=== PATIENT | female | born 1960 | race Caucasian/White ===

== ENCOUNTER 2017-07-09 12:44 | Observation (INO) | payer OTHER ==
[2017-07-09] MEDS ORDERED: Aspirin Low Dose CHEW TAB* 81 MG PO ONE (13:20)
[2017-07-09 13:53] LABS: Hematocrit 37 % (35-47); Hemoglobin 12.7 g/dl (12.0-16.0); Mean Corpuscular HGB Conc 34 g/dl (31-36); Mean Corpuscular Hemoglobin 29 pg (27-31); Mean Corpuscular Volume 84 fL (80-97); Mean Platelet Volume 8 um3 (7.4-10.4); Red Blood Count 4.39 10^6/ul (4.0-5.4); Red Cell Distribution Width 14 % (10.5-15); White Blood Count 5.9 10^3/ul (3.5-10.8)
--- NOTE | 2017-07-09 14:06 | RAD ---
INDICATION: Chest pain, LEFT midline for 4 weeks worsening today. COMPARISON: May 15, 2014 TECHNIQUE: Dual energy PA and routine lateral views of the chest were obtained. REPORT: No focal pulmonary lesion, compelling alveolar consolidation, pleural effusion, pneumothorax. The heart, pulmonary vasculature, and mediastinal contours are unremarkable. Unremarkable soft tissue contours and osseous structures for age. IMPRESSION: No evidence for acute intrathoracic disease.
[2017-07-09 14:26] LABS: Albumin 4.2 g/dL (3.2-5.2); Calcium 9.3 mg/dL (8.6-10.3); EGFR African American 95.8 (>60); EGFR Non-African American 74.5 (>60); Globulin 2.6 g/dL (2-4); Magnesium 2.1 mg/dL (1.9-2.7); Potassium 4.2 mmol/L (3.5-5.0); Total Bilirubin 0.3 mg/dL (0.2-1.0); Total Protein 6.8 g/dL (6.4-8.9)
--- NOTE | 2017-07-09 14:49 | ED ---
Shantell Appiah Alfonso, scribed for Nitin Higginbotham MD on 07/09/17 at 1342 . HPI Chest Pain - HPI Summary HPI Summary: This patient is a 56 year old F presenting to [facility] accompanied by a female with a chief complaint of CP since 4 weeks ago and worse since 0700 today. The CP lasted 4 hours and is now mostly resolved. The CC is described as discomfort , tightness, and heaviness. The patient rates the pain 3/10 in severity. Symptoms aggravated by nothing. Symptoms alleviated by nothing. Patient reports palpitations, heart burn, SOB (resolved), and dizziness. Patient denies diaphoresis, nausea, abdominal pain, and calf pain. She takes ASA 81 mg daily. FHx of CAD and HTN. PMHx includes CAD, DC, and HTN. - History of Current Complaint Chief Complaint: EDChestPainROMI Time Seen by Provider: 07/09/17 13:19 Hx Obtained From: Patient Onset/Duration: Started Weeks Ago - 4, Resolved, Worse Since - 0700 today lasting 4 hours Timing: Intermittent Initial Severity: Moderate Current Severity: Moderate Pain Intensity: 3 Pain Scale Used: 0-10 Numeric Character: Other: - discomfort, tightness, and heaviness Aggravating Factor(s): Nothing Alleviating Factor(s): Nothing Associated Signs and Symptoms: Positive: Other: - Patient reports palpitations, heart burn, SOB (resolved), and dizziness. Patient denies diaphoresis, nausea, abdominal pain, and calf pain. - Allergy/Home Medications Allergies/Adverse Reactions: Allergies Allergy/AdvReac Type Severity Reaction Status Date / Time Cephalexin [From Keflex] Allergy Itching Verified 07/09/17 12:45 Home Medications: Home Medications Aspirin EC Low Dose* [Ecotrin EC Low Dose 81 MG*] 81 mg PO DAILY 07/09/17 [ History Confirmed 07/09/17] HYDROcodone/ACETAMIN 5-325 MG* [[place] 5-325 TAB*] 1 tab PO Q6H PRN 07/09/17 [ History Confirmed 07/09/17] Meloxicam(NF) [Mobic(NF)] 15 mg PO DAILY 07/09/17 [History Confirmed 07/09/17] Metoprolol Succinate XL TAB* [Toprol XL TAB*] 25 mg PO DAILY 07/09/17 [History Confirmed 07/09/17] Omeprazole CAP* [Prilosec CAP* 20 MG] 40 mg PO DAILY 07/09/17 [History Confirmed 07/09/17] traMADol TAB* [Ultram*] 50 - 100 mg PO Q6HR PRN 07/09/17 [History Confirmed ] PMH/Surg Hx/FS Hx/Imm Hx Endocrine/Hematology History: Denies: Hx Anticoagulant Therapy, Hx Diabetes, Hx Thyroid Disease Cardiovascular History: Reports: Hx Angina, Hx Coronary Artery Disease - DC, Hx Hypertension, Hx Myocardial Infarction Denies: Hx Hypercholesterolemia, Hx Pacemaker/ICD, Hx Valvular Heart Disease Respiratory History: Denies: Hx Asthma, Hx Chronic Obstructive Pulmonary Disease (COPD) History: Denies: Hx Renal Disease Neurological History: Denies: Hx Dementia, Hx Headaches, Hx Seizures Psychiatric History: Reports: Hx Anxiety Denies: Hx Substance Abuse - Cancer History Hx Chemotherapy: No Hx Radiation Therapy: No - Surgical History Surgery Procedure, Year, and Place: RIGHT knee surgery, LITHOTRIPSY, HEART SURGERY FOR PATENT DUCTUS AT AGE 5 Infectious Disease History: No Infectious Disease History: Denies: Hx Hepatitis, Hx Human Immunodeficiency Virus (HIV), Traveled Outside the [place] in Last 30 Days - Family History Known Family History: Positive: Cardiac Disease - Mother, Hypertension - Father - Social History Alcohol Use: Occasionally Alcohol Amount: had 3 beers yesterday for the fourth Substance Use Type: Reports: None Smoking Status (MU): Former Smoker Review of Systems Negative: Skin Diaphoresis Positive: Palpitations, Chest Pain Positive: Shortness Of Breath Positive: Other - Heart burn. Negative: Abdominal Pain, Nausea Positive: Other - Negative calf pain Neurological: Other - Dizziness All Other Systems Reviewed And Are Negative: Yes Physical Exam - Summary Physical Exam Summary: The patient is well-nourished in no acute distress and in no acute pain. The skin is warm and dry and skin color reflects adequate perfusion. HEENT: The head is normocephalic and atraumatic. The pupils are equal and reactive. The conjunctivae are clear and without drainage.~Nares are patent and without drainage.~Mouth reveals moist mucous membranes and the throat is without erythema and exudate. The external ears are intact. The ear canals are patent and without drainage. The tympanic membranes are intact. Neck is supple with full range of motion and non-tender. There are no carotid bruits. There is no neck vein distension. Respiratory: Chest is non-tender. Lungs are clear to auscultation and breath sounds are symmetrical and equal. Cardiovascular: Heart is regular rate and rhythm. There is no murmur or rub auscultated. Pulses are symmetrical and equal. Slight reproducible left sided chest wall pain. Abdomen: The abdomen is obese, soft, and non-tender. There are normal bowel sounds heard in all four quadrants and there is no organomegaly palpated. Musculoskeletal: There is no back pain noted. Extremities are non-tender with full range of motion. There is good capillary refill. There is no peripheral edema or calf tenderness elicited. Neurological: Patient is alert and oriented to person, place and time. The patient has symmetrical motor strength in all four extremities. Cranial nerves are grossly intact. Deep tendon reflexes are symmetrical and equal in all four extremities. Psychiatric: The patient has an appropriate affect and does not exhibit any anxiety or depression. Triage Information Reviewed: Yes Vital Signs On Initial Exam: Initial Vitals Temp Pulse Resp BP Pulse Ox 98.1 F 65 16 142/82 98 07/09/17 12:45 07/09/17 12:45 07/09/17 12:45 07/09/17 12:45 07/09/17 12:45 Vital Signs Reviewed: Yes - [address] Coma Scale Coma Scale Total: 15 Diagnostics - Vital Signs Vital Signs Temp Pulse Resp BP Pulse Ox 07/09/17 13:00 61 16 98 07/09/17 12:56 97.8 F 61 26 135/77 97 07/09/17 12:55 135/77 07/09/17 12:45 98.1 F 65 16 142/82 98 - Laboratory Lab Results: Lab Results 07/09/17 07/09/17 07/09/17 Range/Units 13:10 13:10 13:10 WBC 5.9 (3.5-10.8) 10^3/ul RBC 4.39 (4.0-5.4) 10^6/ul Hgb 12.7 (12.0-16.0) g/dl Hct 37 (35-47) % MCV 84 (80-97) fL MCH 29 (27-31) pg MCHC 34 (31-36) g/dl RDW 14 (10.5-15) % Plt Count 228 (150-450) 10^3/ul MPV 8 (7.4-10.4) um3 Neut % (Auto) 47.0 (38-83) % Lymph % (Auto) 33.5 (25-47) % [place] % (Auto) 8.7 (1-9) % Eos % (Auto) 9.7 H (0-6) % Baso % (Auto) 1.1 (0-2) % Absolute Neuts (auto) 2.7 (1.5-7.7) 10^3/ul Absolute Lymphs (auto) 2.0 (1.0-4.8) 10^3/ul Absolute Monos (auto) 0.5 (0-0.8) 10^3/ul Absolute Eos (auto) 0.6 (0-0.6) 10^3/ul Absolute Basos (auto) 0.1 (0-0.2) 10^3/ul Absolute Nucleated RBC 0 10^3/ul Nucleated RBC % 0.1 INR (Anticoag Therapy) (0.89-1.11) Sodium 138 (133-145) mmol/L Potassium 4.2 (3.5-5.0) mmol/L Chloride 106 (101-111) mmol/L Carbon Dioxide 26 (22-32) mmol/L Anion Gap 6 (2-11) mmol/L BUN 24 (6-24) mg/dL Creatinine 0.80 (0.51-0.95) mg/dL Est GFR ( Amer) 95.8 (>60) Est GFR (Non-Af Amer) 74.5 (>60) BUN/Creatinine Ratio 30.0 H (8-20) Glucose 94 (70-100) mg/dL Lactic Acid (0.5-2.0) mmol/L Calcium 9.3 (8.6-10.3) mg/dL Magnesium 2.1 (1.9-2.7) mg/dL Total Bilirubin 0.30 (0.2-1.0) mg/dL AST 18 (13-39) U/L ALT 13 (7-52) U/L Alkaline Phosphatase 44 (34-104) U/L Troponin I 0.00 (<0.04) ng/mL B-Natriuretic Peptide 88 ( - 100) pg/mL Total Protein 6.8 (6.4-8.9) g/dL Albumin 4.2 (3.2-5.2) g/dL Globulin 2.6 (2-4) g/dL Albumin/Globulin Ratio 1.6 (1-3) 07/09/17 07/09/17 Range/Units 13:10 13:10 WBC (3.5-10.8) 10^3/ul RBC (4.0-5.4) 10^6/ul Hgb (12.0-16.0) g/dl Hct (35-47) % MCV (80-97) fL MCH (27-31) pg MCHC (31-36) g/dl RDW (10.5-15) % Plt Count (150-450) 10^3/ul MPV (7.4-10.4) um3 Neut % (Auto) (38-83) % Lymph % (Auto) (25-47) % [place] % (Auto) (1-9) % Eos % (Auto) (0-6) % Baso % (Auto) (0-2) % Absolute Neuts (auto) (1.5-7.7) 10^3/ul Absolute Lymphs (auto) (1.0-4.8) 10^3/ul Absolute Monos (auto) (0-0.8) 10^3/ul Absolute Eos (auto) (0-0.6) 10^3/ul Absolute Basos (auto) (0-0.2) 10^3/ul Absolute Nucleated RBC 10^3/ul Nucleated RBC % INR (Anticoag Therapy) 0.90 (0.89-1.11) Sodium (133-145) mmol/L Potassium (3.5-5.0) mmol/L Chloride (101-111) mmol/L Carbon Dioxide (22-32) mmol/L Anion Gap (2-11) mmol/L BUN (6-24) mg/dL Creatinine (0.51-0.95) mg/dL Est GFR ( Amer) (>60) Est GFR (Non-Af Amer) (>60) BUN/Creatinine Ratio (8-20) Glucose (70-100) mg/dL Lactic Acid 0.5 (0.5-2.0) mmol/L Calcium (8.6-10.3) mg/dL Magnesium (1.9-2.7) mg/dL Total Bilirubin (0.2-1.0) mg/dL AST (13-39) U/L ALT (7-52) U/L Alkaline Phosphatase (34-104) U/L Troponin I (<0.04) ng/mL B-Natriuretic Peptide ( - 100) pg/mL Total Protein (6.4-8.9) g/dL Albumin (3.2-5.2) g/dL Globulin (2-4) g/dL Albumin/Globulin Ratio (1-3) Result Diagrams: 07/09/17 13:10 07/09/17 13:10 Lab Statement: Any lab studies that have been ordered have been reviewed, and results considered in the medical decision making process. - Radiology CXR Radiology Interpretation Completed By: Radiologist - No evidence for acute intrathoracic disease. ED physician has reviewed this radiology report and agrees. - EKG 1323 Cardiac Rate: NL - BPM 61 EKG Rhythm: Sinus Rhythm EKG Interpretation: Poor R-wave progression. No STEMI. Normal [place]. Chest Pain Course/Dx - Course Assessment/Plan: This patient is a 56 year old F presenting to [facility] accompanied by a female with a chief complaint of CP since 4 weeks ago and worse since 0700 today. The CP lasted 4 hours and is now mostly resolved. The CC is described as discomfort, tightness, and heaviness. The patient rates the pain 3/10 in severity. Symptoms aggravated by nothing. Symptoms alleviated by nothing. Patient reports palpitations, heart burn, SOB (resolved), and dizziness. Patient denies diaphoresis, nausea, abdominal pain, and calf pain. She takes ASA 81 mg daily. FHx of CAD and HTN. PMHx includes CAD (DC) and HTN. An EKG reveals NSR and poor r wave progression. CXR reveals No evidence for acute intrathoracic disease. ED physician has reviewed this radiology report and agrees. Consulted Dr. Pisano (hospitalist) who agrees to admit. The patient is agreeable with this plan. - Chest Pain Differential Diagnosis/HQI/PQRI: Acute DC, ACS, GI Disease, Lower Respiratory Infection - Diagnoses Provider Diagnoses: Chest pain - Provider Notifications Discussed Care Of Patient With: Liu Pisano Time Discussed With Above Provider: 14:11 Instructed by Provider To: Other - Consulted Dr. Pisano (hospitalist) who agrees to admit. Discharge - Discharge Plan Condition: Stable Disposition: ADMITTED TO [facility] Referrals: Jimbo Greer MD [Primary Care Provider] - 3 Days The documentation as recorded by the Shantell pickard Alfonso accurately reflects the service I personally performed and the decisions made by me, Nitin Higginbotham MD.
[2017-07-09] MEDS ORDERED: traMADol TAB* 50 MG PO PRN (14:53)
[2017-07-09] MEDS ORDERED: Carisoprodol TAB* 350 MG PO PRN (14:53)
[2017-07-09] MEDS ORDERED: HYDROcodone/ACETAMIN 5-325 MG* 1 TAB PO PRN (14:53)
--- NOTE | 2017-07-09 16:23 | HP ---
CC: Dr. Greer * [facility] MEDICINE HISTORY AND PHYSICAL: DATE OF ADMISSION: 07/09/17 PRIMARY CARE PHYSICIAN: Dr. Greer. ATTENDING PHYSICIAN: Dr. Liu Pisano* (dictation provided by Anabell Shannon NP ). CHIEF COMPLAINT: Chest pain. HISTORY OF PRESENT ILLNESS: Ms. Escobedo is a 56-year-old female with a past medical history of hypertension, NSTEMI in 2008 with normal cardiac catheterization, as well as a normal stress test in 2011, who presents to the hospital with concern for chest pain. Ms. Escobedo states that she had been feeling her normal state of health until about a month ago. At that time, she began to notice the feeling of chest tightness in the center of her chest that seemed to be more associated with being at work, although not necessarily associated with activity. She believes that pain has been relieved with prolonged periods of rest. She felt that it was likely related to stress; however, it seemed to be increasing in frequency. Today, she had worse chest pain in the center of her chest described as tightness as well as a sharper chest pain over to the left side of her chest. She also had a fluttering sensation that made her feel lightheaded. She felt that it was hard to take any deep breath. For this reason, she came to the emergency room for evaluation. She denies any other complaints. She has had no nausea, vomiting, diarrhea, abdominal pain. She has had no fever. In the emergency room, Ms. Escobedo had a troponin which is 0.00 and an EKG which showed no evidence of ischemia. PAST MEDICAL HISTORY: 1. Hypertension. 2. Patent foramen ovale. 3. Stress test in 2011, read as low risk. 4. NSTEMI 2008 with no evidence of CAD found on cardiac catheterization. MEDICATIONS: 1. Aspirin 81 mg p.o. daily. 2. Meloxicam 15 mg p.o. daily. 3. Metoprolol succinate 25 mg p.o. daily. 4. VESIcare 10 mg p.o. daily. 5. Soma 350 mg p.o. q. 8 hours p.r.n. 6. Hydrocodone/acetaminophen 5/325 mg one tab p.o. q.6 hours p.r.n. 7. Omeprazole 40 mg p.o. daily. 8. Tramadol 50, two - 100 mg p.o. q. 6 hours p.r.n. ALLERGIES: KEFLEX. FAMILY HISTORY: The patient reports that her mother of old age, but she did have a CABG in her 50s. Her father is alive, has a history of hypertension and prostate cancer. SOCIAL HISTORY: The patient is a former smoker, she quit 19 years ago. She drinks alcohol very occasionally. There is no reported drug use. She states her daughter will be her healthcare proxy. REVIEW OF SYSTEMS: A 14-point review of systems was completed with Ms. Escobedo, and all those not mentioned above were negative. PHYSICAL EXAMINATION GENERAL: Ms. Escobedo is sitting up in the bed. She is in no acute distress. VITAL SIGNS: Temperature 97.8, heart rate 57, respiratory rate 16, O2 saturation 96% on room air, blood pressure 121/71. LUNGS: Clear to auscultation bilaterally with no accessory muscle use and good aeration. HEART: S1, S2. No murmur, rub, or gallop and regular. ABDOMEN: Soft, nontender with bowel sounds positive x4. EXTREMITIES: No cyanosis. No edema. NEURO: She is alert. She is oriented x3. She moves all extremities equally. There is no facial asymmetry or focal weakness. Extraocular movements are intact. SKIN: Intact. DIAGNOSTIC STUDIES/LAB DATA: WBC 5.9, hemoglobin 12.7, hematocrit 37, platelet count 228. INR 0.90. Sodium 138, potassium 4.2, chloride 106, serum bicarbonate 26, BUN 24, creatinine 0.80, glucose 94, lactic acid 0.5. Troponin 0.00. BNP 88. Chest x-ray shows no acute intrathoracic process. EKG shows sinus rhythm with no evidence of ischemia. ASSESSMENT: Ms. Escobedo is a 56-year-old female with past medical history of hypertension and chronic pain related to degenerative joint disease, who presents to the hospital today with concern for chest pain that seems to be worsening over the past month. PLAN: 1. Chest pain: The patient describing chest pain that seems to be worsening over the past month, associated now with fluttering in the chest with lightheadedness. I think she deserves observation in the hospital overnight for telemetry monitoring as well as stress test tomorrow. Plan for achemical nuclear stress test as she believes that she would not be able to complete an exercise stress test due to her arthritis. 2. Hypertension: Plan to continue metoprolol. 3. Chronic pain: Continue home medications. 4. DVT prophylaxis with SCDs. 5. Code status is full code. TIME SPENT: Approximately 60 minutes was spent on the admission of this patient , more than half the time was spent with the patient at bedside, reviewing the events leading up to this hospitalization, performing the physical examination, and reviewing my plan of care. ANABELL SHANNON NP [id number]/CPS #: [id number] GERALDO
[2017-07-09] MEDS ORDERED: Metoprolol Succinate XL TAB* 25 MG PO SCH (21:00)
[2017-07-10] MEDS ORDERED: Pneumococcal *Vac Polyvalent 0.5 ML VIAL IM ONE (09:00)
[2017-07-10] MEDS ORDERED: Aspirin EC Low Dose* 81 MG TAB.EC PO SCH (09:00)
[2017-07-10] MEDS ORDERED: Omeprazole CAP* 20 MG PO SCH (09:00)
[2017-07-10] MEDS ORDERED: Regadenoson* 0.4 MG/5 ML SYRINGE ONE (09:38)
[2017-07-10] MEDS ORDERED: Aminophylline IV* 25 MG/ML 10 ML VIAL ONE (09:38)
--- NOTE | 2017-07-10 11:19 | RAD ---
HISTORY: Chest pain, hypertension, shortness of breath, previous CO COMPARISONS: October 20, 2012 TECHNIQUE: A 1 day stress/rest myocardial perfusion study was performed, with pharmacologic stress. The stress portion was monitored by Dr. Ribeiro. Gated SPECT imaging was performed, with CT-based attenuation correction DOSE: Stress: Technetium 99m tetrofosmin, 25.92 millicuries, injected at 9:56 AM on July 10, 2017 Rest: Technetium 99m tetrofosmin, 10.57 millicuries, injected at 6:38 AM on July 10, 2017 Pharmacologic agent: Lexiscan FINDINGS: CARDIAC MONITORING: No EKG criteria of ischemia with stress EF: 55 % TID: 1.34 MOTION: Normal motion, with normal wall thickening. PERFUSION: There is a small partially reversible perfusion defect of the inferior wall towards the apex OTHER: None IMPRESSION: 1. ELEVATED T.I.D. WHICH CAN BE ASSOCIATED WITH MULTIVESSEL DISEASE. 2. SMALL PARTIALLY REVERSIBLE DEFECT OF THE INFERIOR WALL TOWARDS THE APEX SUGGESTIVE OF AN AREA OF MIXED ISCHEMIA AND INFARCTION. ASSESSMENT: INTERMEDIATE RISK. Based on imaging criteria from ACC/AHA 2002. Guideline Update for the Management of Patient's with Chronic Stable Angina, table 23. Noninvasive Risk Stratification.
--- NOTE | 2017-07-10 14:41 | PN ---
Subjective Date of Service: 07/10/17 Interval History: Patient seen and examined at bedside. Pt states that she is feeling well this morning. She reports some sternal chest discomfort this morning, that she associated with indigestion. She states that this chest discomfort was similar to when she had her NSTEMI in 2008. Denies fever, chills, shortness of breath, N /V/D. Tele: Sinus rhythm, rate 50-60's. Family History: Unchanged from Admission Social History: Unchanged from Admission Past Medical History: Unchanged from Admission Objective Active Medications: Hydrocodone Bitart/Acetaminophen ([place] 5-325 Tab*) 1 tab PO Q6H PRN Reason: PAIN Aspirin (Aspirin Ec Low Dose*) 81 mg PO DAILY [place] Carisoprodol (Soma Tab*) 350 mg PO Q8HR PRN Reason: PAIN Metoprolol Succinate (Toprol Xl Tab*) 25 mg PO BEDTIME [place] Omeprazole (Prilosec Cap*) 40 mg PO DAILY [place] Tramadol HCl (Ultram*) 50 mg PO Q6HR PRN Reason: PAIN Vital Signs 07/09/17 07/09/17 07/09/17 15:00 16:00 16:10 Temperature Pulse Rate 55 55 57 Respiratory 14 15 14 Rate Blood Pressure 130/80 (mmHg) O2 Sat by Pulse 98 98 99 Oximetry 07/09/17 07/09/17 07/09/17 17:16 19:41 20:00 Temperature 98.2 F 97.9 F Pulse Rate 59 61 Respiratory 16 16 16 Rate Blood Pressure 152/72 132/65 (mmHg) O2 Sat by Pulse 100 99 Oximetry 07/09/17 07/09/17 07/10/17 21:03 23:03 03:25 Temperature 97.5 F 97.7 F Pulse Rate 60 51 Respiratory 16 16 16 Rate Blood Pressure 130/61 139/55 (mmHg) O2 Sat by Pulse 98 96 Oximetry 07/10/17 07/10/17 07:26 11:20 Temperature 97.8 F 98.0 F Pulse Rate 50 56 Respiratory 16 20 Rate Blood Pressure 150/67 149/69 (mmHg) O2 Sat by Pulse 97 99 Oximetry Oxygen Devices in Use Now: None Appearance: NAD, sitting up on the side of the bed Ears/Nose/Mouth/Throat: Mucous Membranes Moist Respiratory: Symmetrical Chest Expansion and Respiratory Effort, Clear to Auscultation Cardiovascular: NL Sounds; No Murmurs; No JVD, RRR Abdominal: NL Sounds; No Tenderness; No Distention Extremities: No Edema Skin: No Rash or Ulcers Neurological: Alert and Oriented x 3, NL Muscle Strength and Tone Lines/Tubes/Other Access: Clean, Dry and Intact Peripheral IV - site benign Nutrition: Taking PO's Result Diagrams: 07/09/17 13:10 07/09/17 13:10 Additional Lab and Data: Assess/Plan/Problems-Billing Assessment: Ms. Escobedo is a 56 yo female with PMH significant for HTN, PFO and takotsubo cardiomyopathy who presented to the emergency room with complaints of sternal chest tightness. - Patient Problems (1) Chest pain Code(s): R07.9 - CHEST PAIN, UNSPECIFIED SNOMED Code(s): 67888645 Comment: - Suspect this is noncardiac in nature - Troponin 0.00 X3 - Stress test intermediate risk, shows an elevated TID which can be associated with multivessel disease. Small partial reversible defect of the inferior wall towards the apex suggestive of an area of mixed ischemia and infarction - Cardiology side consulted and they feel she can be discharged and have a follow-up with cardiology as an outpatient. She had a clean cardiac cath in 2008. It was felt that the small partial reversible defect near the apex is related to her history of HTN (2) HTN (hypertension) Code(s): I10 - ESSENTIAL (PRIMARY) HYPERTENSION SNOMED Code(s): 34484238 Comment: - SBP 130-150's - Continue Metoprolol (3) Chronic pain Code(s): G89.29 - OTHER CHRONIC PAIN SNOMED Code(s): 17895578 Comment: - Continue home medications (4) DVT prophylaxis Code(s): MPC8032 - SNOMED Code(s): 188628233 (5) Full code status Code(s): Z78.9 - OTHER SPECIFIED HEALTH STATUS SNOMED Code(s): 842920162 Status and Disposition: OBV. Stable for discharge to home today.
[2017-07-10 16:06] VITALS: BP 151/83
--- NOTE | 2017-07-10 23:29 | DS ---
CC: Jimbo Greer MD; Sanna Cotter MD * DISCHARGE SUMMARY: DATE OF ADMISSION: 07/09/17 DATE OF DISCHARGE: 07/10/17 PRIMARY CARE PROVIDER: Jimbo Greer MD ATTENDING PHYSICIAN: Jadiel Noguera MD * (dictated by Kinza Fang NP) PRIMARY DIAGNOSIS: Chest pain, suspect noncardiac in nature. SECONDARY DIAGNOSES: 1. Hypertension. 2. Patent foramen ovale. 3. Takotsubo cardiomyopathy. STUDIES WHILE IN THE HOSPITAL: 1. Chest x-ray on 07/09/17, radiologist's impression: No evidence for acute intrathoracic disease. 2. Nuclear medicine scan on 07/10/17. Ground Support Agent's conclusion: No evidence for myocardial ischemia by EKG criteria with regadenoson nuclear portion to be reported separately by Radiology. Radiologist's impression: Elevated TID which can be associated with multivessel disease, partially reversible defect to the inferior wall towards the apex suggestive of an area of mixed ischemia and infarction. Assessment: Intermediate risk. DISCHARGE MEDICATIONS: Continued home medications: 1. Metoprolol succinate 25 mg oral daily at bedtime. 2. Aspirin 81 mg oral daily. 3. Selma 5/325 one tablet oral every 6 hours as needed for pain. 4. Soma 350 mg oral every 8 hours as needed for muscle spasm. 5. Meloxicam 50 mg oral daily. 6. Tramadol 50 to 100 mg oral every 6 hours as needed for pain. 7. VESIcare 10 mg oral daily. 8. Omeprazole 40 mg oral daily. HISTORY OF PRESENT ILLNESS/HOSPITAL COURSE: Ms. Escobedo is a 56-year-old female with past medical history significant for hypertension, takotsubo cardiomyopathy in 2008 with a normal cardiac catheterization as well as a normal stress test in 2011, who presented to the hospital with concerns for chest discomfort. Ms. Escobedo was feeling in her normal state of health until approximately a month ago, when she noticed she started feeling chest tightness in the center of her chest, seemed to be more associated when she was at work and not necessarily associated with activity. She felt that the pain was relieved with prolonged periods of rest. She felt that the discomfort was likely related to stress; however, the discomfort seemed to be increasing in frequency. The patient had worse pain describing the discomfort as a tightness as well as a sharpness in her chest over to the left side. She also reported a fluttering sensation that made her feel lightheaded. She felt it was hard to take deep breaths for this, she decided to present to the emergency room for further evaluation of her symptoms. While in the emergency room, the patient had initial troponins at 0.00 and EKG showing no evidence of acute ischemia. The Hospitalists were asked to evaluate the patient for admission. While in the hospital, the patient's troponins were trended, they were flat at 0.00. The patient underwent a nuclear stress test showing no evidence for myocardial ischemia by EKG criteria per Cardiology. Radiology read it as an intermediate scan due to elevated TID, which can be associated with multivessel disease. There is a small partially reversible defect of the inferior wall towards the apex suggestive of an area of mixed ischemia and infarction. Cardiology was side consulted and they felt that the area seen near the apex was consistent with a patient with history of hypertension. The patient also has a history of being a former smoker and obesity. In addition, the inferior wall is often falsely positive with obesity. Ms. Escobedo denied any further discomfort. She did report some discomfort earlier today that she associated to be similar to indigestion. She had a clean cardiac catheterization in 2008. It was felt that the patient's pain could be related to her stress. Ms. Escobedo is stable for discharge to home today. PHYSICAL EXAMINATION: Vital signs are as follows: Temperature 98.2, heart rate 67, respiratory rate 16, O2 sat 98% on room air, blood pressure 151/83. DISCHARGE PLAN: Ms. Escobedo will be discharged to home. Activity as tolerated. She should be on a heart healthy, low fat diet. As far as the patient's chest pain, I suspect this is related to stress and not cardiac in nature. The patient reports feeling stressed lately regarding work. The patient should be seen in followup by her primary care provider, Dr. Greer, in the next week. Dr. Greer's office will call the patient for a followup appointment. The patient has also been set up to be seen by Cardiology as an outpatient as she has not followed with them recently. She has an appointment with Dr. Cotter on 07/16/17 at 10:15 a.m. The patient has been asked to return to the emergency room for any return of chest discomfort, shortness of breath. She has been continued on all her usual home medications. But note that she was slightly hypertensive, continue to follow that as an outpatient. She may need her blood pressure medications further adjusted. This is a summarized report of a complex medical history and hospital stay. For further details, please see the entire medical record. TIME SPENT: Time for this discharge was 50 minutes and greater than half of that was spent [id number] with the patient discussing discharge plans and instructions. CONDITION ON DISCHARGE: Stable. Reviewed by ILAN RANDLE 07/14/172109 [id number]/[facility] #: [id number] GERALDO
== END 2017-07-10 16:45 | disposition home or self-care (01) ==
LOC: ED 12:44 → MEDTELE 14:22
PROVIDERS: ADMIT Internal Medicine; ATTEND Internal Medicine
DX: R07.89 Other chest pain (principal); I10 Essential (primary) hypertension; Q21.1 Atrial septal defect; I51.81 Takotsubo syndrome; R00.1 Bradycardia, unspecified; Z87.891 Personal history of nicotine dependence; Z79.899 Other long term (current) drug therapy; G89.29 Other chronic pain; R06.02 Shortness of breath; R42 Dizziness and giddiness; J44.9 Chronic obstructive pulmonary disease, unspecified
CPT/HCPCS: 36415; 71020; 78452; 80053; 83605; 83735; 83880; 84484; 85025; 85610; 93005; 93017; 96372; 99283; A9270-GY; A9502; G0378; J0280; J2785

== ENCOUNTER 2018-03-19 09:11 | Emergency (ER) | payer OTHER ==
[2018-03-19 09:35] VITALS: BP 141/80
--- NOTE | 2018-03-19 11:15 | UC ---
Skin Complaint HPI - HPI Summary HPI Summary: patient is an otherwise healthy 57-year-old male presenting to the with chief complaint of distal index left fingertip injury after avulsing it with a knife at work approximately 30 minutes prior to arrival. She denies any numbness or tingling. Full range of motion. Bleeding is well controlled on arrival. Tetanus is up-to-date. - History of Current Complaint Hx Obtained From: Patient Hx Last Menstrual Period: FIRST WEEK SEPT ?: No Onset/Duration: Sudden Onset Skin Exposure Onset/Duration: Minutes Ago Timing: Constant Onset Severity: Mild Current Severity: None Pain Intensity: 1 Pain Scale Used: 0-10 Numeric Aggravating Factor(s): Nothing Alleviating Factor(s): Nothing Associated Signs & Symptoms: Positive: Negative Related History: Trauma <Candelaria Vaca - Last Filed: 03/19/18 11:11> <Sabrina Khalil - Last Filed: 03/19/18 11:23> - History of Current Complaint Chief Complaint: UCUpperExtremity Time Seen by Provider: 03/19/18 09:53 Stated Complaint: FINGER INJURY - Allergy/Home Medications Allergies/Adverse Reactions: Allergies Allergy/AdvReac Type Severity Reaction Status Date / Time cephalexin [From Keflex] Allergy Itching Verified 03/19/18 09:35 Review of Systems Constitutional: Negative Skin: Other - avulsion ENT: Negative Respiratory: Negative Cardiovascular: Negative Motor: Negative Neurovascular: Negative Musculoskeletal: Negative Neurological: Negative Is Patient Immunocompromised?: No All Other Systems Reviewed And Are Negative: Yes <Candelaria Vaca - Last Filed: 03/19/18 11:11> PMH/Surg Hx/FS Hx/Imm Hx Previously Healthy: Yes Other History Of: Negative For: Anticoagulant Therapy - Surgical History Surgical History: Yes Surgery Procedure, Year, and Place: RIGHT knee surgery, LITHOTRIPSY, HEART SURGERY FOR PATENT DUCTUS AT AGE 5 - Family History Known Family History: Positive: Cardiac Disease - Mother, Hypertension - Father - Social History Occupation: Employed Full-time Lives: With Family Alcohol Use: Weekly Alcohol Amount: 2 BEERS Substance Use Type: None Smoking Status (MU): Former Smoker - Immunization History Most Recent Influenza Vaccination: 2017 Most Recent Pneumonia Vaccination: never <Candelaria Vaca - Last Filed: 03/19/18 11:11> Physical Exam Triage Information Reviewed: Yes Appearance: Well-Appearing, No Pain Distress, Well-Nourished Vital Signs: Initial Vital Signs Temp 96.9 F 03/19/18 09:31 Pulse 66 03/19/18 09:31 Resp 18 03/19/18 09:31 BP 141/80 03/19/18 09:31 Pulse Ox 99 03/19/18 09:31 Vital Signs Reviewed: Yes Eye Exam: Normal Eyes: Positive: Conjunctiva Clear Neck exam: Normal Neck: Positive: Supple, No Lymphadenopathy Cardiovascular Exam: Normal Cardiovascular: Positive: RRR Musculoskeletal Exam: Normal Musculoskeletal: Positive: Strength Intact Neurological Exam: Normal Neurological: Positive: Alert Psychological Exam: Normal Psychological: Positive: Normal Response To Family Skin Exam: Normal <Candelaria Vaca - Last Filed: 03/19/18 11:11> Vital Signs: Initial Vital Signs Temp 96.9 F 03/19/18 09:31 Pulse 66 18 09:31 Resp 18 03/19/18 09:31 BP 141/80 03/19/18 09:31 Pulse Ox 99 03/19/18 09:31 <Sabrina Khalil - Last Filed: 03/19/18 11:23> Course/Dx - Course Course Of Treatment: Avulsion of the left distal tip of the index finger. The avulsion is through the nail and is approximately 0.7 cm in diameter. Occlusive gauze Xeroform dressing applied with tube gauze placement. Coban wrapped. She will typical been off into hours. She is given care instructions and is okay for discharge at this time. - Diagnoses Provider Diagnoses: Skin Avulsion <Candelaria Vaca - Last Filed: 03/19/18 11:11> Discharge - Sign-Out/Discharge Documenting (check all that apply): Discharge/Admit/Transfer - Billing Disposition and Condition Condition: STABLE Disposition: HOME <Candelaria Vaca - Last Filed: 03/19/18 11:11> - Billing Disposition and Condition Condition: STABLE Disposition: HOME <Sabrina Khalil - Last Filed: 03/19/18 11:23> - Discharge Plan Condition: Stable Disposition: HOME Patient Education Materials: Skin Avulsion (ED) Referrals: Jimbo Greer MD [Primary Care Provider] - Additional Instructions: Keep the medicated gauze on under bandaids Attestation Statement User Type: Provider - I was available for consult. This patient was seen by the [facility]. The patient was not presented to, seen by, or examined by me. -Laureano <Sabrina Khalil - Last Filed: 03/19/18 11:23>
== END 2018-03-19 10:13 | disposition home or self-care (01) ==
LOC: UCEAST 09:11
DX: S61.201A Unspecified open wound of left index finger without damage to nail, initial encounter (principal); W26.0XXA Contact with knife, initial encounter; Y93.9 Activity, unspecified; Y92.9 Unspecified place or not applicable; Y99.0 Civilian activity done for income or pay; Z88.1 Allergy status to other antibiotic agents; Z87.891 Personal history of nicotine dependence
CPT/HCPCS: 99212; G0463

== ENCOUNTER → 2018-10-30 09:28 | Day surgery (SDC) | payer OTHER ==
[~2018-10-30 09:28] MED LIST: Acetaminophen TAB* 325 MG PO PRN; Buffered Lidocaine 0.9% SYRIN* 5 ML/SYR SYRINGE INTRADERM ONE; Bupivacaine 0.5% W/EPI SDV* 30 ML VIAL ONE; Bupivacaine 0.5%* 50 ML VIAL ONE; Dexamethasone IV* 4 MG/ML 1 ML (4 MG) ONE; EPHEDrine (Pressors)* 50 MG/ML VIAL ONE; HYDROmorphone INJ1* 1 MG/ML SYRINGE IV PRN; Lactated Ringers 1000 ML Bag* 1,000 ML IV SCH; Lidocaine 2% PF * 5 ML VIAL ONE; Midazolam* 1 MG/ML 2 ML VIAL (2 MG) ONE; Naloxone* 0.4 MG/ML 1 ML VIAL IV PRN; Ondansetron INJ* 2 MG/ML VIAL ONE; Propofol* 10 MG/ML 20 ML BTL ONE; ROPIVACAINE 5 MG/ML 30 ML BTL (0.5%) ONE; ceFAZolin 2 GM PREMIX in ORs 2 GM/50 ML BAG IVPB ONE; fentaNYL* 50 MCG/ML 2 ML VIAL (100 MCG VIAL) IV PRN; fentaNYL* 50 MCG/ML 2 ML VIAL (100 MCG VIAL) ONE; oxyCODONE/Acetamin 5/325 MG* TAB PO PRN
--- NOTE | 2018-10-30 15:01 | OP ---
Operative Report - Blank - Operative Report Date of Operation: 10/30/18 Note: PATIENT: Veronika Escobedo DATE OF : 1960 DATE OF SURGERY: 10/30/2018 SURGEON: Chinedu Martin MD MANAGER PRODUCT: JENNA Hampton, whos assistance was necessary for positioning, retraction, help with instrumentation, and closure. ANESTHESIOLOGIST: Jennifer Waddell MD PREOPERATIVE DIAGNOSIS: Right midfoot arthritis POSTOPERATIVE DIAGNOSIS: Right midfoot arthritis OPERATION: 1. Right midfoot fusions of the 1st TMT, 2nd TMT, 3rd TMT, medial and lateral intercuneiform and three naviculocuneiform joints 2. Autogenous bone grafting with right iliac crest bone graft. ANESTHESIA: LMA + block IMPLANTS: Arthrex TOURNIQUET TIME: Less than 2 hours with a well-padded thigh tourniquet at 250 mmHg SPECIMENS: none ESTIMATED BLOOD LOSS: minimal COMPLICATIONS: none STATUS: Stable from the operating room to the recovery room and then home. INDICATIONS FOR PROCEDURE: Veronika has had persistent right midfoot pain from arthritis. Both operative and non operative treatment alternatives were reviewed. Further, the nature and risks of surgery were reviewed in careful detail, in the office as well as the pre-operative holding area. Our discussions regarding the risks of surgery included, but were not limited to, infection, wound problems, nerve injury, neuroma, RSD, persistent symptoms, blood clot, fracture, nonunion, malunion, hardware pain, need for further surgery, persistent pain and symptoms, failure of the surgery, and even the remote chance of catastrophic complication, including loss of limb. DESCRIPTION OF PROCEDURE: The patient was seen in the preoperative holding unit and informed written consent was obtained. The appropriate extremity was marked. The patient was then brought to the operating room and carefully positioned on the operating room table. Anesthesia was induced. All bony prominences were padded with great care. A well-padded thigh tourniquet was placed. A chlorhexidine based pre- scrub was performed followed by a chloraprep prep and drape in standard sterile fashion. A surgical safety pause was then conducted in which we confirmed the appropriate patient, extremity, planned procedure, availability of equipment, indication and administration of prophylactic antibiotics, and DVT prophylaxis in the form of a compression boot on the non-surgical extremity. We began with an Esmarch exsanguination of the limb and inflated the tourniquet. I utilized a longitudinal incision over the first TMT joint. A second longitudinal incision was made over the third TMT joint. Careful dissection was taken down to the level of the bones and the joints were exposed in a subperiosteal manner. As expected, arthritis was encountered throughout the midfoot joints. The above joints were exposed with the use of laminar spreaders and Hintermann retractors. Any remaining cartilage was removed. The joints were then prepared for fusion by using curettes, burrs, and a rongeur. Dorsal osteophytes were saucerized. Attention was then turned to the right iliac crest which had been previously prepped and draped in a standard fashion. A small amount of Marcaine with epinephrine was placed in the subcutaneous tissues and then also used to anesthetize the periosteum and the soft tissues over the ASIS. Just posterior to the ASIS, a small stab incision using a 15 blade was made. A Jamshidi needle was then advanced being careful to stay centered on the iliac crest. This was advanced slowly and carefully through the superior cortex of the crest between the inner and outer tables of bone. Once this area had been reached, a syringe was used to remove 3cc of bone marrow aspirate. The stylet was then removed from the Jamshidi needle and multiple cores on bone graft were harvested from the iliac crest. These were added to the dish with the bone marrow aspirate. The incision site for the bone graft was then copiously irrigated and closed in layers utilizing 3-0 Monocryl and 3-0 nylon. A sterile dressing was applied. The bone graft, aspirate and milled allograft chips were then mixed and placed into the prior-prepared midfoot joints, which were then reduced and fixation was placed with a combination of compression screws and 4.0mm cannulated screws. Excellent compression across the joints was achieved. Fluoroscopy was used throughout and at the end, final fluoroscopic images were obtained. At this point, we irrigated and then closed in layers meticulously utilizing 3- 0 Monocryl and 3-0 nylon for the skin. A sterile dressing was then applied followed by a splint with the ankle in a neutral position. The patient was then awakened from anesthesia and transferred to the recovery room in stable condition. There were no complications. All needle and sponge counts were correct at the end of the case. ATTESTATION: I attest I was present and scrubbed and performed the critical portions of the procedure myself. POSTOPERATIVE PLAN: Follow up will be in 2 weeks for likely suture removal and postop x-rays. The postoperative plan is to be [id number] for 2 months , then weight-bearing as tolerated in a boot.
[2018-10-30 15:51] VITALS: BP 146/64
== END | disposition home or self-care (01) ==
LOC: OR 09:28
PROVIDERS: ATTEND Orthopaedic Surgery
DX: M19.071 Primary osteoarthritis, right ankle and foot (principal); M19.072 Primary osteoarthritis, left ankle and foot; I25.10 Atherosclerotic heart disease of native coronary artery without angina pectoris; K21.9 Gastro-esophageal reflux disease without esophagitis; G89.18 Other acute postprocedural pain
CPT/HCPCS: 76001; C1713; C1776; C9359; J0690; J1100; J2250; J2405; J2704; J2795; J3010

== ENCOUNTER 2019-12-02 13:31 | Day surgery (SDC) | payer OTHER ==
[~2019-12-02 13:31] MED LIST changes: -Buffered Lidocaine 0.9% SYRIN* 5 ML/SYR SYRINGE INTRADERM ONE; +Buffered Lidocaine 1% SYRIN* 1 ML/SYRINGE INTRADERM ONE; -Bupivacaine 0.5% W/EPI SDV* 30 ML VIAL ONE; -Bupivacaine 0.5%* 50 ML VIAL ONE; -Dexamethasone IV* 4 MG/ML 1 ML (4 MG) ONE; -EPHEDrine (Pressors)* 50 MG/ML VIAL ONE; -HYDROmorphone INJ1* 1 MG/ML SYRINGE IV PRN; -Lactated Ringers 1000 ML Bag* 1,000 ML IV SCH; -Lidocaine 2% PF * 5 ML VIAL ONE; -Midazolam* 1 MG/ML 2 ML VIAL (2 MG) ONE; -Naloxone* 0.4 MG/ML 1 ML VIAL IV PRN; -Ondansetron INJ* 2 MG/ML VIAL ONE; -Propofol* 10 MG/ML 20 ML BTL ONE; -ROPIVACAINE 5 MG/ML 30 ML BTL (0.5%) ONE; -ceFAZolin 2 GM PREMIX in ORs 2 GM/50 ML BAG IVPB ONE; -fentaNYL* 50 MCG/ML 2 ML VIAL (100 MCG VIAL) IV PRN; -fentaNYL* 50 MCG/ML 2 ML VIAL (100 MCG VIAL) ONE; -oxyCODONE/Acetamin 5/325 MG* TAB PO PRN
[2019-12-02] MEDS ORDERED: Phenylephrine OPHTH SOL 2.5%* 2 ML ONE (14:01)
[2019-12-02] MEDS ORDERED: Ketorolac 0.5% OPHTH (NF) 0.5 % 5 ML BTL ONE (14:01)
[2019-12-02] MEDS ORDERED: Cyclopentolate 1% OPTH.SOL* 2 ML BTL ONE (14:01)
[2019-12-02] MEDS ORDERED: Lidocaine 1% MPF ** 5 ML VIAL ONE (14:01)
[2019-12-02] MEDS ORDERED: Proparacaine 0.5% OPHTH.SOL* 15 ML BTL ONE (14:01)
[2019-12-02] MEDS ORDERED: Lidocaine 2% w/ EPI 1:200,000* 20 ML SDV VIAL ONE (14:01)
[2019-12-02] MEDS ORDERED: Neomycin/Polymy/Dex OPTH.SUSP* MAXITROL 0.1% 5 ML ONE (14:01)
[2019-12-02] MEDS ORDERED: acetaZOLAMIDE TAB* 250 MG ONE (14:01)
[2019-12-02] MEDS ORDERED: Midazolam* 1 MG/ML 5 ML VIAL (5 MG) ONE (16:03)
[2019-12-02] MEDS ORDERED: fentaNYL* 50 MCG/ML 2 ML VIAL (100 MCG VIAL) ONE (16:03)
[2019-12-02 17:10] VITALS: BP 163/66
--- NOTE | 2019-12-03 02:10 | OP ---
DATE OF OPERATION: 12/02/19 [facility] DATE OF : [birth year] SURGEON: Ildefonso Navarrete M.D. PREOPERATIVE DIAGNOSIS: Cataract right eye. POSTOPERATIVE DIAGNOSIS: Cataract right eye. OPERATIVE PROCEDURE: Extracapsular cataract extraction with intraocular lens implant right eye. DESCRIPTION OF PROCEDURE: The patient was brought to the operating room after being given 1/2% Alcaine with epinephrine drops in the preoperative area. The eye was prepped and draped in the usual sterile fashion. Sterile drape and eyelid speculum were placed. Again, topical 1/2% Alcaine with epinephrine was given. A paracentesis incision was made at the 9 o'clock position with the No.75 blade. Clear cornea incision 2.2 x 2.2-mm was created at the 12 o'clock position starting at the anterior limbus using the 2.2-mm keratome. The anterior chamber was irrigated with 0.4 mL of 1% non-preservative intracameral lidocaine and filled with DisCoVisc. A capsulorrhexis was completed using the cystotome and the Utrata forceps. Hydrodissection was performed with balanced salt solution. The lens nucleus was removed with the Phacoemulsification handpiece without incident. Cortex was removed with the irrigation-aspiration handpiece. The capsular bag was re-inflated using DisCoVisc and an [id number] implant was inserted with the shooter. The irrigation-aspiration handpiece was used to remove all residual DisCoVisc. The eye was refilled with balanced salt solution and the wound checked and found to be watertight. Topical Maxitrol drops were given. [id number]/[facility] #: [id number] [facility]
== END 2019-12-02 17:20 | disposition home or self-care (01) ==
LOC: OREAST 13:31
PROVIDERS: ATTEND Specialist
DX: H25.811 Combined forms of age-related cataract, right eye (principal); M06.9 Rheumatoid arthritis, unspecified; Z79.899 Other long term (current) drug therapy; I10 Essential (primary) hypertension; F41.8 Other specified anxiety disorders; K21.9 Gastro-esophageal reflux disease without esophagitis; Q21.1 Atrial septal defect
CPT/HCPCS: A9270-GY; J2250; J3010; V2632

== ENCOUNTER 2019-12-09 10:04 | Day surgery (SDC) | payer OTHER ==
[2019-12-09 10:56] VITALS: BP 154/74
[2019-12-09] MEDS ORDERED: Midazolam* 1 MG/ML 5 ML VIAL (5 MG) ONE (11:30)
[2019-12-09] MEDS ORDERED: fentaNYL* 50 MCG/ML 2 ML VIAL (100 MCG VIAL) ONE (11:58)
--- NOTE | 2019-12-09 12:55 | OP ---
DATE OF OPERATION: 12/09/2019. DATE OF : 1960. SURGEON: Ildefonso Navarrete M.D. PREOPERATIVE DIAGNOSIS: Cataract left eye. POSTOPERATIVE DIAGNOSIS: Cataract left eye. OPERATIVE PROCEDURE: Extracapsular cataract extraction with intraocular lens implant left eye. PROCEDURE: The patient was brought to the operating room after being given 1/2% Alcaine with epineph rine drops in the preoperative area. The eye was prepped and draped in the usual sterile fashion. S terile drape and eyelid speculum were placed. Again, topical 1/2% Alcaine with epinephrine was given . A paracentesis incision was made at the 3 o'clock position with the No.75 blade. Clear cornea inc ision 2.2 x 2.2-mm was created at the 6 o'clock position starting at the anterior limbus using the 2. 2-mm keratome. The anterior chamber was irrigated with 0.4 mL of 1% non-preservative intracameral li docaine and filled with DisCoVisc. A capsulorrhexis was completed using the cystotome and the Utrata forceps. Hydrodissection was performed with balanced salt solution. The lens nucleus was removed wi th the Phacoemulsification handpiece without incident. Cortex was removed with the irrigation-aspira tion handpiece. The capsular bag was re-inflated using DisCoVisc and an [id number] implant was insert ed with the shooter. The irrigation-aspiration handpiece was used to remove all residual DisCoVisc. The eye was refilled with balanced salt solution and the wound checked and found to be watertight. Topical Maxitrol drops were given. [id number]/[facility] #: [id number]
[2019-12-09] MEDS ORDERED: Lidocaine 1% MPF ** 5 ML VIAL ONE (13:34)
[2019-12-09] MEDS ORDERED: acetaZOLAMIDE TAB* 250 MG ONE (13:34)
[2019-12-09] MEDS ORDERED: Cyclopentolate 1% OPTH.SOL* 2 ML BTL ONE (13:34)
[2019-12-09] MEDS ORDERED: Ketorolac 0.5% OPHTH (NF) 0.5 % 5 ML BTL ONE (13:34)
[2019-12-09] MEDS ORDERED: Phenylephrine OPHTH SOL 2.5%* 2 ML ONE (13:34)
[2019-12-09] MEDS ORDERED: Povidone Iodine 5% OPTH* 30 ML BTL ONE (13:34)
[2019-12-09] MEDS ORDERED: Neomycin/Polymy/Dex OPTH.SUSP* MAXITROL 0.1% 5 ML ONE (13:34)
[2019-12-09] MEDS ORDERED: Proparacaine 0.5% OPHTH.SOL* 15 ML BTL ONE (13:34)
[2019-12-09] MEDS ORDERED: Lidocaine 2% w/ EPI 1:200,000* 20 ML SDV VIAL ONE (13:34)
== END 2019-12-09 12:42 | disposition home or self-care (01) ==
LOC: OREAST 10:04
PROVIDERS: ATTEND Specialist
DX: H25.812 Combined forms of age-related cataract, left eye (principal); M06.9 Rheumatoid arthritis, unspecified; Z79.899 Other long term (current) drug therapy; K21.9 Gastro-esophageal reflux disease without esophagitis; I10 Essential (primary) hypertension; F41.8 Other specified anxiety disorders
CPT/HCPCS: A9270-GY; J2250; J3010; V2632

== ENCOUNTER 2024-10-22 11:50 | Observation (INO) ==
[2024-10-22 12:33] LABS: Rapid COVID-19 Molecular Undetected (Undetected)
[2024-10-22] MEDS: Buffered Lidocaine 1% SYRIN 1 ml INTRADERM ONE (12:53)
[2024-10-22] MEDS ORDERED: Tranexamic Acid 1 GM/100ML BAG 2,000 MG/200 ML BAG IV ONE (12:56)
[2024-10-22] MEDS ORDERED: Dexamethasone IV 4 MG/ML VIAL 1 ml VIAL ONE (12:56)
[2024-10-22] MEDS: Dexamethasone IV 4 MG/ML VIAL 1 ml VIAL IV SLOW PU ONE (13:04)
[2024-10-22] MEDS: Lactated Ringers 1000 ml BAG 1,000 ML IV SCH ×2 (13:04→18:36)
[2024-10-22] MEDS: Famotidine IV 10 MG/ML 2 ml VIAL (20 mg) IV ONE (13:05)
[2024-10-22] MEDS ORDERED: Famotidine IV 10 MG/ML 2 ml VIAL (20 mg) ONE (13:06)
[2024-10-22] MEDS ORDERED: Midazolam 2 mg/2 ml VIAL 1 mg/ml 2 ml VIAL (2 mg) ONE ×2 (13:07→15:00)
[2024-10-22] MEDS ORDERED: fentaNYL 100 mcg/2 ml 50 MCG/ML VIAL ONE (13:07)
[2024-10-22] MEDS ORDERED: Clindamycin 900 MG/50 **NS BAG 900 MG/50 ML BAG ONE (13:55)
[2024-10-22] MEDS ORDERED: ROPIVACAINE 5 MG/ML 30 ML BTL (0.5%) ONE ×2 (14:14→14:29)
[2024-10-22] MEDS ORDERED: Lidocaine 2% PF 5 ML VIAL ONE (15:04)
[2024-10-22] MEDS ORDERED: Naloxone 0.4 mg VIAL 0.4 mg/ml 1 ml VIAL IV PRN (15:26)
[2024-10-22] MEDS ORDERED: HYDROmorphone 1 MG/1 ML SYRINGE IV PRN (15:26)
[2024-10-22] MEDS ORDERED: fentaNYL 100 mcg/2 ml 50 MCG/ML VIAL IV PRN (15:26)
[2024-10-22] MEDS ORDERED: Ondansetron ODT 4 mg TAB 4 MG TAB PO PRN (16:12)
[2024-10-22] MEDS ORDERED: Calcium Carb (TUMS) 500 mg CHEW TAB PO PRN (16:12)
[2024-10-22] MEDS ORDERED: Ondansetron 4 mg VIAL 2 MG/ML 2 ml VIAL IV PRN (16:12)
[2024-10-22] MEDS ORDERED: Lactulose 30 ml UDC PO PRN (16:12)
[2024-10-22] MEDS ORDERED: Magnesium Hydroxide LIQ 30 ML UDC PO PRN (16:12)
[2024-10-22] MEDS: Morphine 2 MG/ML SYRINGE IV PRN (20:46)
[2024-10-22] MEDS: Morphine 2 MG/ML SYRINGE IV ONE (21:34)
[2024-10-22] MEDS: Magnesium Hydroxide LIQ 30 ML UDC PO SCH (21:35)
[2024-10-22] MEDS: Clindamycin 900 MG/D5W BAG 900 MG/50 ML BAG IVPB SCH (23:38)
[2024-10-23] MEDS: Morphine 2 MG/ML SYRINGE IV ONE (00:53)
[2024-10-23 06:32] LABS: Hematocrit 31.7 % (35-45); Mean Platelet Volume 8.2 fL (7.5-11.2); Platelet Count 227 10^3/uL (150-450)
[2024-10-23 06:49] LABS: Calcium 8.4 mg/dL (8.6-10.3); Creatinine, Serum 0.85 mg/dL (0.51-0.95); Potassium 3.9 mmol/L (3.5-5.0); eGFR CKD-EPI 76.9 (>60)
[2024-10-23] MEDS: Vitamin THERAPEUTIC TAB PO SCH (08:29)
[2024-10-23] MEDS: Influenza Vaccine *TRI* 2024-25* 0.5 ML SYRINGE IM ONE (08:39)
[2024-10-23 14:38] VITALS: BP 126/76
== END 2024-10-23 16:50 | disposition home or self-care (01) ==
LOC: SSU 11:50 → OR 11:50
PROVIDERS: ADMIT Orthopaedic Surgery Adult Reconstructive Orthopaedic Surgery; ATTEND Orthopaedic Surgery Adult Reconstructive Orthopaedic Surgery